=== PATIENT | male | born 1940 | race Caucasian/White ===

== ENCOUNTER → 2020-04-09 | Outpatient (CLI) | payer OTHER | LOC: HYPER 13:04 | PROVIDERS: ATTEND Emergency Medicine | DX: L89.623 Pressure ulcer of left heel, stage 3 (principal); B07.0 Plantar wart; R60.0 Localized edema; R06.00 Dyspnea, unspecified; E78.00 Pure hypercholesterolemia, unspecified; I73.9 Peripheral vascular disease, unspecified; I25.10 Atherosclerotic heart disease of native coronary artery without angina pectoris; I10 Essential (primary) hypertension; H26.9 Unspecified cataract; J98.4 Other disorders of lung; K21.9 Gastro-esophageal reflux disease without esophagitis; R41.81 Age-related cognitive decline; M35.3 Polymyalgia rheumatica; M65.28 Calcific tendinitis, other site; M54.16 Radiculopathy, lumbar region; M79.673 Pain in unspecified foot; M13.849 Other specified arthritis, unspecified hand; Z87.891 Personal history of nicotine dependence; Z95.1 Presence of aortocoronary bypass graft; Z96.611 Presence of right artificial shoulder joint; Z79.82 Long term (current) use of aspirin ==

== ENCOUNTER → 2020-04-18 | Outpatient (CLI) | payer OTHER | LOC: HYPER 10:20 | PROVIDERS: ATTEND Emergency Medicine | DX: L89.623 Pressure ulcer of left heel, stage 3 (principal); L84 Corns and callosities; B07.0 Plantar wart; R60.0 Localized edema; R06.00 Dyspnea, unspecified; E78.00 Pure hypercholesterolemia, unspecified; I73.9 Peripheral vascular disease, unspecified; I25.10 Atherosclerotic heart disease of native coronary artery without angina pectoris; I10 Essential (primary) hypertension; H26.9 Unspecified cataract; J98.4 Other disorders of lung; K21.9 Gastro-esophageal reflux disease without esophagitis; R41.81 Age-related cognitive decline; M35.3 Polymyalgia rheumatica; M65.28 Calcific tendinitis, other site; M54.16 Radiculopathy, lumbar region; M79.673 Pain in unspecified foot; M13.849 Other specified arthritis, unspecified hand; Z87.891 Personal history of nicotine dependence; Z95.1 Presence of aortocoronary bypass graft; Z96.611 Presence of right artificial shoulder joint; Z79.82 Long term (current) use of aspirin ==

== ENCOUNTER → 2020-05-06 | Outpatient (CLI) | payer OTHER | LOC: HYPER 13:23 | PROVIDERS: ATTEND Emergency Medicine | DX: L89.623 Pressure ulcer of left heel, stage 3 (principal); L84 Corns and callosities; B07.0 Plantar wart; R60.0 Localized edema; R06.00 Dyspnea, unspecified; E78.00 Pure hypercholesterolemia, unspecified; I73.9 Peripheral vascular disease, unspecified; I25.10 Atherosclerotic heart disease of native coronary artery without angina pectoris; I10 Essential (primary) hypertension; H26.9 Unspecified cataract; J98.4 Other disorders of lung; K21.9 Gastro-esophageal reflux disease without esophagitis; R41.81 Age-related cognitive decline; M35.3 Polymyalgia rheumatica; M65.28 Calcific tendinitis, other site; M54.16 Radiculopathy, lumbar region; M79.673 Pain in unspecified foot; M13.849 Other specified arthritis, unspecified hand; Z87.891 Personal history of nicotine dependence; Z95.1 Presence of aortocoronary bypass graft; Z96.611 Presence of right artificial shoulder joint; Z79.82 Long term (current) use of aspirin ==

== ENCOUNTER → 2020-05-23 | Outpatient (CLI) | payer OTHER | LOC: HYPER 13:34 | PROVIDERS: ATTEND Emergency Medicine | DX: L89.623 Pressure ulcer of left heel, stage 3 (principal); L84 Corns and callosities; I73.9 Peripheral vascular disease, unspecified; M35.3 Polymyalgia rheumatica; M65.28 Calcific tendinitis, other site; M54.16 Radiculopathy, lumbar region; M79.673 Pain in unspecified foot; B07.0 Plantar wart; R60.0 Localized edema; J98.4 Other disorders of lung; R41.81 Age-related cognitive decline; R06.00 Dyspnea, unspecified; I25.10 Atherosclerotic heart disease of native coronary artery without angina pectoris; E78.00 Pure hypercholesterolemia, unspecified; M19.049 Primary osteoarthritis, unspecified hand; K21.9 Gastro-esophageal reflux disease without esophagitis; I10 Essential (primary) hypertension; H26.9 Unspecified cataract; Z91.81 History of falling; Z79.82 Long term (current) use of aspirin; Z87.891 Personal history of nicotine dependence; Z79.01 Long term (current) use of anticoagulants ==

== ENCOUNTER → 2020-06-26 | Outpatient (CLI) | payer OTHER | LOC: HYPER 13:20 | PROVIDERS: ATTEND Emergency Medicine | DX: L89.623 Pressure ulcer of left heel, stage 3 (principal); L84 Corns and callosities; I73.9 Peripheral vascular disease, unspecified; B07.0 Plantar wart; R60.0 Localized edema; J98.4 Other disorders of lung; R41.81 Age-related cognitive decline; R06.00 Dyspnea, unspecified; I25.10 Atherosclerotic heart disease of native coronary artery without angina pectoris; I10 Essential (primary) hypertension; E78.00 Pure hypercholesterolemia, unspecified; H26.9 Unspecified cataract; K21.9 Gastro-esophageal reflux disease without esophagitis; M35.3 Polymyalgia rheumatica; M65.28 Calcific tendinitis, other site; M54.16 Radiculopathy, lumbar region; M79.673 Pain in unspecified foot; M19.049 Primary osteoarthritis, unspecified hand; Z79.82 Long term (current) use of aspirin; Z87.891 Personal history of nicotine dependence; Z79.01 Long term (current) use of anticoagulants ==

== ENCOUNTER → 2020-07-30 | Outpatient (CLI) | payer OTHER | LOC: HYPER 11:33 | PROVIDERS: ATTEND Emergency Medicine | DX: L89.623 Pressure ulcer of left heel, stage 3 (principal); L84 Corns and callosities; I73.9 Peripheral vascular disease, unspecified; B07.0 Plantar wart; R60.0 Localized edema; J98.4 Other disorders of lung; R41.81 Age-related cognitive decline; R06.00 Dyspnea, unspecified; I25.10 Atherosclerotic heart disease of native coronary artery without angina pectoris; I10 Essential (primary) hypertension; E78.00 Pure hypercholesterolemia, unspecified; H26.9 Unspecified cataract; K21.9 Gastro-esophageal reflux disease without esophagitis; M35.3 Polymyalgia rheumatica; M65.28 Calcific tendinitis, other site; M54.16 Radiculopathy, lumbar region; M79.673 Pain in unspecified foot; M19.049 Primary osteoarthritis, unspecified hand; Z79.82 Long term (current) use of aspirin; Z87.891 Personal history of nicotine dependence; Z79.01 Long term (current) use of anticoagulants ==

== ENCOUNTER → 2020-08-20 | Outpatient (CLI) | payer OTHER | LOC: HYPER 13:20 | PROVIDERS: ATTEND Emergency Medicine | DX: L89.623 Pressure ulcer of left heel, stage 3 (principal); L84 Corns and callosities; I73.9 Peripheral vascular disease, unspecified; B07.0 Plantar wart; R60.0 Localized edema; J98.4 Other disorders of lung; R41.81 Age-related cognitive decline; R06.00 Dyspnea, unspecified; I25.10 Atherosclerotic heart disease of native coronary artery without angina pectoris; I10 Essential (primary) hypertension; E78.00 Pure hypercholesterolemia, unspecified; H26.9 Unspecified cataract; K21.9 Gastro-esophageal reflux disease without esophagitis; M35.3 Polymyalgia rheumatica; M65.28 Calcific tendinitis, other site; M54.16 Radiculopathy, lumbar region; M79.673 Pain in unspecified foot; M19.049 Primary osteoarthritis, unspecified hand; Z79.82 Long term (current) use of aspirin; Z87.891 Personal history of nicotine dependence; Z79.01 Long term (current) use of anticoagulants ==

== ENCOUNTER → 2021-02-12 | Outpatient (CLI) | payer OTHER | LOC: HYPER 09:09 | PROVIDERS: ATTEND Emergency Medicine | DX: L97.822 Non-pressure chronic ulcer of other part of left lower leg with fat layer exposed (principal); S81.812A Laceration without foreign body, left lower leg, initial encounter; I73.9 Peripheral vascular disease, unspecified; M35.3 Polymyalgia rheumatica; M65.28 Calcific tendinitis, other site; L84 Corns and callosities; M54.16 Radiculopathy, lumbar region; M79.673 Pain in unspecified foot; B07.0 Plantar wart; R60.0 Localized edema; J98.4 Other disorders of lung; R41.81 Age-related cognitive decline; R06.00 Dyspnea, unspecified; I25.10 Atherosclerotic heart disease of native coronary artery without angina pectoris; M48.00 Spinal stenosis, site unspecified; M05.9 Rheumatoid arthritis with rheumatoid factor, unspecified; E78.00 Pure hypercholesterolemia, unspecified; K21.9 Gastro-esophageal reflux disease without esophagitis; I10 Essential (primary) hypertension; H26.9 Unspecified cataract; M19.049 Primary osteoarthritis, unspecified hand; Z87.891 Personal history of nicotine dependence; Z91.81 History of falling; Z79.82 Long term (current) use of aspirin; Z79.01 Long term (current) use of anticoagulants; Z79.899 Other long term (current) drug therapy; X58.XXXA Exposure to other specified factors, initial encounter; Y93.89 Activity, other specified; Y92.89 Other specified places as the place of occurrence of the external cause; Y99.8 Other external cause status ==

== ENCOUNTER → 2021-02-24 | Outpatient (CLI) | payer OTHER | LOC: HYPER 08:21 | PROVIDERS: ATTEND Emergency Medicine | DX: S81.812D Laceration without foreign body, left lower leg, subsequent encounter (principal); L97.822 Non-pressure chronic ulcer of other part of left lower leg with fat layer exposed; S91.302D Unspecified open wound, left foot, subsequent encounter; L89.629 Pressure ulcer of left heel, unspecified stage; I73.9 Peripheral vascular disease, unspecified; M35.3 Polymyalgia rheumatica; M65.28 Calcific tendinitis, other site; M54.16 Radiculopathy, lumbar region; M79.673 Pain in unspecified foot; B07.0 Plantar wart; R60.0 Localized edema; J98.4 Other disorders of lung; R41.81 Age-related cognitive decline; R06.00 Dyspnea, unspecified; I25.10 Atherosclerotic heart disease of native coronary artery without angina pectoris; L84 Corns and callosities; M48.00 Spinal stenosis, site unspecified; E78.00 Pure hypercholesterolemia, unspecified; M19.049 Primary osteoarthritis, unspecified hand; K21.9 Gastro-esophageal reflux disease without esophagitis; H26.9 Unspecified cataract; Z79.01 Long term (current) use of anticoagulants; Z87.891 Personal history of nicotine dependence; Z79.899 Other long term (current) drug therapy; Z91.81 History of falling; Z79.82 Long term (current) use of aspirin; X58.XXXD Exposure to other specified factors, subsequent encounter ==

== ENCOUNTER → 2021-03-12 | Outpatient (CLI) | payer OTHER | LOC: HYPER 08:54 | PROVIDERS: ATTEND Emergency Medicine | DX: S81.812D Laceration without foreign body, left lower leg, subsequent encounter (principal); L89.629 Pressure ulcer of left heel, unspecified stage; L97.822 Non-pressure chronic ulcer of other part of left lower leg with fat layer exposed; I73.9 Peripheral vascular disease, unspecified; M35.3 Polymyalgia rheumatica; M65.28 Calcific tendinitis, other site; M54.16 Radiculopathy, lumbar region; M79.673 Pain in unspecified foot; B07.0 Plantar wart; R60.0 Localized edema; J98.4 Other disorders of lung; R41.81 Age-related cognitive decline; I25.10 Atherosclerotic heart disease of native coronary artery without angina pectoris; E78.00 Pure hypercholesterolemia, unspecified; M13.849 Other specified arthritis, unspecified hand; J44.9 Chronic obstructive pulmonary disease, unspecified; H26.9 Unspecified cataract; I10 Essential (primary) hypertension; Z91.81 History of falling; Z79.82 Long term (current) use of aspirin; Z87.891 Personal history of nicotine dependence; Z79.01 Long term (current) use of anticoagulants; Z79.899 Other long term (current) drug therapy; X58.XXXD Exposure to other specified factors, subsequent encounter ==

== ENCOUNTER → 2021-04-02 | Outpatient (CLI) | payer OTHER | LOC: HYPER 10:44 | PROVIDERS: ATTEND Emergency Medicine | DX: S81.812D Laceration without foreign body, left lower leg, subsequent encounter (principal); L89.629 Pressure ulcer of left heel, unspecified stage; L97.822 Non-pressure chronic ulcer of other part of left lower leg with fat layer exposed; I73.9 Peripheral vascular disease, unspecified; I89.0 Lymphedema, not elsewhere classified; E78.00 Pure hypercholesterolemia, unspecified; M35.3 Polymyalgia rheumatica; M65.28 Calcific tendinitis, other site; M54.16 Radiculopathy, lumbar region; M79.673 Pain in unspecified foot; B07.0 Plantar wart; R60.0 Localized edema; J98.4 Other disorders of lung; R41.81 Age-related cognitive decline; I25.10 Atherosclerotic heart disease of native coronary artery without angina pectoris; I10 Essential (primary) hypertension; J44.9 Chronic obstructive pulmonary disease, unspecified; H26.9 Unspecified cataract; K21.9 Gastro-esophageal reflux disease without esophagitis; M13.849 Other specified arthritis, unspecified hand; Z79.82 Long term (current) use of aspirin; Z87.891 Personal history of nicotine dependence; Z79.01 Long term (current) use of anticoagulants; X58.XXXD Exposure to other specified factors, subsequent encounter ==

== ENCOUNTER → 2021-05-01 | Outpatient (CLI) | payer OTHER | LOC: HYPER 10:21 | PROVIDERS: ATTEND Emergency Medicine | DX: S81.812D Laceration without foreign body, left lower leg, subsequent encounter (principal); L89.629 Pressure ulcer of left heel, unspecified stage; L97.822 Non-pressure chronic ulcer of other part of left lower leg with fat layer exposed; L84 Corns and callosities; I73.9 Peripheral vascular disease, unspecified; I89.0 Lymphedema, not elsewhere classified; E78.00 Pure hypercholesterolemia, unspecified; M35.3 Polymyalgia rheumatica; M65.28 Calcific tendinitis, other site; M54.16 Radiculopathy, lumbar region; M79.673 Pain in unspecified foot; B07.0 Plantar wart; R60.0 Localized edema; J98.4 Other disorders of lung; R41.81 Age-related cognitive decline; I25.10 Atherosclerotic heart disease of native coronary artery without angina pectoris; I10 Essential (primary) hypertension; J44.9 Chronic obstructive pulmonary disease, unspecified; H26.9 Unspecified cataract; K21.9 Gastro-esophageal reflux disease without esophagitis; M13.849 Other specified arthritis, unspecified hand; Z79.82 Long term (current) use of aspirin; Z87.891 Personal history of nicotine dependence; Z79.01 Long term (current) use of anticoagulants; X58.XXXD Exposure to other specified factors, subsequent encounter ==

== ENCOUNTER → 2021-06-11 | Outpatient (CLI) | payer OTHER | LOC: HYPER 09:42 | PROVIDERS: ATTEND Emergency Medicine | DX: S81.812D Laceration without foreign body, left lower leg, subsequent encounter (principal); L89.629 Pressure ulcer of left heel, unspecified stage; L97.822 Non-pressure chronic ulcer of other part of left lower leg with fat layer exposed; L84 Corns and callosities; I73.9 Peripheral vascular disease, unspecified; I89.0 Lymphedema, not elsewhere classified; E78.00 Pure hypercholesterolemia, unspecified; M35.3 Polymyalgia rheumatica; M65.28 Calcific tendinitis, other site; M54.16 Radiculopathy, lumbar region; M79.673 Pain in unspecified foot; B07.0 Plantar wart; R60.0 Localized edema; J98.4 Other disorders of lung; R41.81 Age-related cognitive decline; I25.10 Atherosclerotic heart disease of native coronary artery without angina pectoris; I10 Essential (primary) hypertension; J44.9 Chronic obstructive pulmonary disease, unspecified; H26.9 Unspecified cataract; K21.9 Gastro-esophageal reflux disease without esophagitis; M13.849 Other specified arthritis, unspecified hand; Z79.82 Long term (current) use of aspirin; Z87.891 Personal history of nicotine dependence; Z79.01 Long term (current) use of anticoagulants; X58.XXXD Exposure to other specified factors, subsequent encounter ==